=== PATIENT | female | born 1955 | race Caucasian/White ===

== ENCOUNTER → 2021-08-22 | Outpatient (CLI) | payer OTHER | LOC: KOH-I 09:52 | DX: M25.571 Pain in right ankle and joints of right foot (principal) | CPT/HCPCS: 73590 ==

== ENCOUNTER → 2021-09-14 | Outpatient (CLI) | payer OTHER | LOC: KOH-I 14:20 → US 14:30 → KOH-I 14:30 | DX: I82.401 Acute embolism and thrombosis of unspecified deep veins of right lower extremity (principal); M79.661 Pain in right lower leg; R60.9 Edema, unspecified | CPT/HCPCS: 73718; 93971 ==

== ENCOUNTER → 2022-08-23 | Outpatient (CLI) | payer OTHER, MEDICARE | LOC: EXRD 13:30 | DX: I73.9 Peripheral vascular disease, unspecified (principal) | CPT/HCPCS: 93925; 93930 ==